=== PATIENT | male | born 1975 | race African-American/Black ===

== ENCOUNTER 2025-05-14 12:15 | Inpatient (IN) | payer OTHER, MEDICAID ==
[~2025-05-14] VITALS: Ht 160 cm; Wt 59.0 kg
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
--- NOTE | 2025-05-14 14:31 | DVH ---
CHEST RADIOGRAPH Indication: fever Technique: Single frontal view of the chest was obtained COMPARISON: None FINDINGS: Lines and Tubes: None Lungs: Clear Pleura: No effusion. No pneumothorax. Cardiomediastinal contours: Unremarkable Bones: Unremarkable IMPRESSION: 1. No acute disease.
[2025-05-14 14:43] LABS: Hematocrit 39.9 % (41.0-53.0); Hemoglobin 13.8 g/dL (13.5-17.5); Mean Corpuscular Hemoglobin 28.7 pg (28.0-32.0); Mean Corpuscular Volume 83.0 fL (80.0-100.0); Nucleated Red Blood Cells % 0.0 %
[2025-05-14 14:47] LABS: Sodium 140 mmol/L (136-145)
[2025-05-14 14:48] LABS: Anion Gap 8 (5-15); Calcium 9.5 mg/dL (8.7-10.4); Carbon Dioxide 25 mmol/L (20-31)
[2025-05-14 14:53] LABS: BUN/Creatinine Ratio 14.9 (10.0-20.0)
[2025-05-14 14:54] LABS: Blood Urea Nitrogen 7 mg/dL (9-23); Chloride 107 mmol/L (98-107); Glucose 114 mg/dL (74-106); Potassium 3.3 mmol/L (3.5-5.1)
[2025-05-14] MEDS: ONDANSETRON HCL 4 MG/2 ML VIAL IV ONE ×2 (15:40→18:50)
[2025-05-14] MEDS: SODIUM CHLORIDE 0.9% 1,000 ML IV ONE (15:40)
[2025-05-14] MEDS: MORPHINE SULFATE 4 MG/ML SYR/VIAL IV ONE ×2 (15:41→18:50)
[2025-05-14] MEDS: cefTRIAXone 1GM/50ML D5W 50 ML IV ONE (18:50)
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
[2025-05-14 20:00] VITALS: PULSE 100; RESP 20; O2SAT 95
[2025-05-14] MEDS ORDERED: ONDANSETRON HCL 4 MG/2 ML VIAL IV PRN (20:00)
[2025-05-14] MEDS ORDERED: NITROGLYCERIN 0.4 MG SL TAB SL PRN (20:00)
[2025-05-14] MEDS ORDERED: DOCUSATE SOD 100 MG CAP PO PRN (20:00)
[2025-05-14] MEDS ORDERED: MORPHINE SULFATE INJ 2 MG/ml SYRG IV PRN (20:00)
[2025-05-14] MEDS: HYDROcodone-ACET 5/325MG TAB PO PRN (21:00)
[2025-05-14] MEDS: SODIUM CHLOR 0.9% PF (SALINE LOCK) 10ML VIAL/SYR IV SCH (21:09)
[2025-05-14] MEDS: MORPHINE SULF 30 mg ER tab PO SCH (23:09)
[2025-05-14] MEDS: POTASSIUM CHL 20 Meq TABLET PO ONE (23:09)
[2025-05-15 03:52] LABS: Urine Protein, UAD TRACE (Negative); Urine WBC Clumps PRESENT /hpf (None Seen)
[2025-05-15] MEDS: KETOROLAC TROMETH 30 MG/ML 1ML VIAL IV ONE (05:01)
[2025-05-15 06:48] LABS: Hematocrit 36.9 % (41.0-53.0); Hemoglobin 12.8 g/dL (13.5-17.5); Mean Corpuscular Hemoglobin 29.5 pg (28.0-32.0); Mean Corpuscular Volume 85.1 fL (80.0-100.0); Nucleated Red Blood Cells % 0.0 %
[2025-05-15 07:14] LABS: Alanine Aminotransferase 16 U/L (7-40); Albumin 4.0 g/dL (3.2-4.8); Alkaline Phosphatase 72 U/L (46-116); Anion Gap 9 (5-15); BUN/Creatinine Ratio 16.7 (10.0-20.0); Calcium 8.7 mg/dL (8.7-10.4); Carbon Dioxide 23 mmol/L (20-31); Chloride 103 mmol/L (98-107); Total Protein 6.8 g/dL (5.7-8.2)
[2025-05-15 07:15] LABS: Bilirubin, Total 0.7 mg/dL (0.2-1.0)
[2025-05-15 07:20] LABS: Blood Urea Nitrogen 8 mg/dL (9-23); Glucose 110 mg/dL (74-106); Potassium 3.4 mmol/L (3.5-5.1); Sodium 135 mmol/L (136-145)
[2025-05-15 08:10] VITALS: PULSE 102; RESP 20; O2SAT 96
[2025-05-15] MEDS: ACETAMINOPHEN 325 MG TAB PO PRN (08:19)
[2025-05-15] MEDS: cefTRIAXone 1GM/50ML D5W 50 ML IV SCH (08:45)
[2025-05-15 09:00] VITALS: TEMP 97.4
[2025-05-15 10:00] VITALS: BP 109/65; PULSE 88; RESP 16; O2SAT 95
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
== END 2025-05-15 10:44 | disposition left against medical advice (07) | DRG 92 ==
LOC: ER 12:15 → EDBD 12:15 → OVERFLOW 19:46
PROVIDERS: ADMIT Hospitalist; ATTEND Hospitalist
DX: G89.29 Other chronic pain (principal); G82.20 Paraplegia, unspecified; R53.1 Weakness; Z53.29 Procedure and treatment not carried out because of patient's decision for other reasons; Z88.6 Allergy status to analgesic agent; Z88.0 Allergy status to penicillin
CPT/HCPCS: 36415; 71045; 80048; 80053; 81001; 83605; 84484; 85025; 87040; 87077; 87186; 96365; 96375; G0378; J2405